=== PATIENT | male | born 1975 | race Caucasian/White ===

== ENCOUNTER 2017-07-08 12:22 | Emergency (ER) | payer BC, OTHER ==
[~2017-07-08] VITALS: Ht 182.9 cm; Wt 106.6 kg
[~2017-07-08 12:22] MED LIST: DIAZEPAM5 MG PO; HYDROCODONE-IB1 EAC1 PO; PHENTERMINE H37.5 M1 PO; SAPHRIS10 MG PO
[2017-07-08] MEDS ORDERED: SODIUM CHLORIDE 0.9% 1000ML 1,000 ML IV ONE (12:45)
[2017-07-08] MEDS ORDERED: ASPIRIN 81 MG CHEW TAB PO ONE (12:45)
--- NOTE | 2017-07-08 13:47 | Diagnostic Imaging Report ---
PROCEDURE: Frontal and lateral views of the chest. COMPARISON: 09/24/07 INDICATIONS: CHEST PAIN FINDINGS: Lines/tubes: None. Lungs: The lungs are well inflated and clear. There is no evidence of pneumonia or pulmonary edema. Pleura: There is no pleural effusion or pneumothorax. Heart and mediastinum: The heart and the mediastinum are normal. Bones: No acute bony abnormality. IMPRESSION: 1. No acute cardiopulmonary disease. Dictated by: Andrea Allen M.D. on 07/08/2017 at 13:57 Electronically approved by: Andrea Allen M.D. on 07/08/2017 at 13:57
[2017-07-08 13:53] LABS: BASOPHILS # (AUTO) 0.1 (0.0-0.1); BASOPHILS % 0.7 % (0.0-1.0); EOSINOPHILS # (AUTO) 0.2 (0.0-0.4); EOSINOPHILS % 1.6 % (0.0-6.0); HEMATOCRIT 47.9 % (38.2-49.6); HEMOGLOBIN 16.1 g/dL (14.0-18.0); LYMPHOCYTES # (AUTO) 3.3 (1.0-3.2); LYMPHOCYTES % 27.6 % (18.0-39.1); MEAN CORPUSCULAR HEMOGLOBIN 28.7 pg (28-32); MEAN CORPUSCULAR HGB CONC 33.6 g/dL (31-35); MEAN CORPUSCULAR VOLUME 85.4 fL (81-99); NEUTROPHILS # (AUTO) 7.3 (2.1-6.9); NEUTROPHILS % 61.8 % (38.7-80.0); PLATELET COUNT 310 x10e3/uL (140-360); RED BLOOD COUNT 5.61 x10e6/uL (4.3-5.7); RED CELL DISTRIBUTION WIDTH 13.6 % (11.7-14.4)
[2017-07-08] MEDS ORDERED: KETOROLAC TROMETHAMINE 30 MG/ML VIAL IV STA (13:54)
[2017-07-08 14:03] LABS: INR 0.8; PROTHROMBIN TIME 11.5 seconds (11.9-14.5)
[2017-07-08 14:13] LABS: ALANINE AMINOTRANSFERASE 21 IU/L (0-55); ALBUMIN 4.1 g/dL (3.5-5.0); ALBUMIN/GLOBULIN RATIO 1.1 (0.8-2.0); ALKALINE PHOSPHATASE 95 IU/L (40-150); ANION GAP 18.6 mmol/L (8-16); BLOOD UREA NITROGEN 12 mg/dL (7-26); BUN/CREATININE RATIO 12 (6-25); CALCIUM 9.2 mg/dL (8.4-10.2); CARBON DIOXIDE 21 mmol/L (22-29); CHLORIDE 106 mmol/L (98-107); CREATINE KINASE 71 IU/L (30-200); CREATININE, SERUM 0.97 mg/dL (0.72-1.25); EST GLOMERULAR FILTRATION RATE > 60 ML/MIN (60-); GLUCOSE 99 mg/dL (74-118); POTASSIUM 4.6 mmol/L (3.5-5.1); SODIUM 141 mmol/L (136-145)
== END 2017-07-08 18:40 | disposition home or self-care (01) ==
LOC: ER 12:22
DX: R07.89 Other chest pain (principal); F31.9 Bipolar disorder, unspecified
CPT/HCPCS: 36415; 71046; 80053; 82550; 82553; 84484; 85025; 85379; 85610; 93005; 99284; J1885; J7030

== ENCOUNTER 2019-01-11 06:13 | Emergency (ER) | payer BC ==
[~2019-01-11] VITALS: Ht 182.9 cm; Wt 106.6 kg
--- OUTSIDE RECORDS SUMMARY | 2019-01-11 06:16 | XMS REPORT ---
Author Author [facility] Address Unknown Phone Unavailable Care Team Providers Care Application Penetration Tester Name Role Phone Jasmyne MONZON Unavailable Unavailable Problems This patient has no known problems. Allergies, Adverse Reactions, Alerts This patient has no known allergies or adverse reactions. Medications This patient has no known medications. Results Test Description Test Time Test Comments Text Results Atomic Results Result Comments CHEST 2 VIEWS [place] [address] Patient Name: JANE BROTHERS MR #: [id number] : 1975 Age/Sex: 42/M Req #: [id number] Adm Physician: Ordered by: FABY MALDONADO HEAD OF MOBILE Report #: [id number] Location: ER Room/Bed: Procedure: [id number] DX/CHEST 2 VIEWS Exam Date: 07/08/17 Exam Time: 1320 REPORT STATUS: Signed PROCEDURE: Frontal and lateral views of the chest. COMPARISON: 09/24/07 INDICATIONS: CHEST PAIN FINDINGS: Lines/tubes: None. Lungs: The lungs are well inflated and clear. There is no evidence of pneumonia or pulmonary edema. Pleura: There is no pleural effusion or pneumothorax. Heart and mediastinum: The heart and the mediastinum are normal. Bones: No acute bony abnormality. IMPRESSION: 1. No acute cardiopulmonary disease. Dictated by: Andrea Pat M.D. on 07/08/2017 at 13:57 Electronically approved by: Andrea Pat M.D. on 07/08/2017 at 13:57 Dictated By: ANDREA PAT MD [id number] Transcribed By: JUANITO on 07/08/17 1357 COPY TO: FABY MALDONADO NP
[2019-01-11 06:44] LABS: BASOPHILS # (AUTO) 0.1 (0.0-0.1); BASOPHILS % 0.5 % (0.0-1.0); EOSINOPHILS # (AUTO) 0.3 (0.0-0.4); EOSINOPHILS % 2.2 % (0.0-6.0); HEMATOCRIT 49.2 % (38.2-49.6); HEMOGLOBIN 16.6 g/dL (14.0-18.0); LYMPHOCYTES # (AUTO) 3.8 (1.0-3.2); LYMPHOCYTES % 33.2 % (18.0-39.1); MEAN CORPUSCULAR HEMOGLOBIN 28.6 pg (28-32); MEAN CORPUSCULAR HGB CONC 33.7 g/dL (31-35); MEAN CORPUSCULAR VOLUME 84.8 fL (81-99); MONOCYTES % 8.7 % (4.4-11.3); NEUTROPHILS # (AUTO) 6.3 (2.1-6.9); NEUTROPHILS % 54.9 % (38.7-80.0); PLATELET COUNT 307 x10e3/uL (140-360); RED CELL DISTRIBUTION WIDTH 13.9 % (11.7-14.4)
[2019-01-11 06:49] LABS: INR 0.9; PROTHROMBIN TIME 12.6 seconds (11.9-14.5)
[2019-01-11 06:50] LABS: PARTIAL THROMBOPLASTIN TIME 26.1 seconds (23.8-35.5)
[2019-01-11 06:55] LABS: BILIRUBIN,URINE NEGATIVE (NEGATIVE); CLARITY,URINE CLEAR (CLEAR); COLOR,URINE YELLOW (YELLOW); KETONES,URINE NEGATIVE (NEGATIVE); LEUKOCYTE ESTERASE ,URINE NEGATIVE (NEGATIVE); NITRITE,URINE NEGATIVE (NEGATIVE); PROTEIN,URINE DIPSTICK NEGATIVE (NEGATIVE); URINE UROBILINOGEN 0.2 mg/dL (0.2 - 1)
[2019-01-11 06:59] LABS: ALANINE AMINOTRANSFERASE 25 IU/L (0-55); ALBUMIN/GLOBULIN RATIO 1.4 (0.8-2.0); ALKALINE PHOSPHATASE 90 IU/L (40-150); ANION GAP 13.8 mmol/L (8-16); BLOOD UREA NITROGEN 9 mg/dL (7-26); BUN/CREATININE RATIO 10 (6-25); CALCIUM 9.9 mg/dL (8.4-10.2); CARBON DIOXIDE 27 mmol/L (22-29); CHLORIDE 98 mmol/L (98-107); CREATINE KINASE 110 IU/L (30-200); CREATININE, SERUM 0.88 mg/dL (0.72-1.25); EST GLOMERULAR FILTRATION RATE > 60 ML/MIN (60-); GLUCOSE 115 mg/dL (74-118); POTASSIUM 3.8 mmol/L (3.5-5.1); SODIUM 135 mmol/L (136-145)
[2019-01-11 07:12] LABS: BACTERIA,URINE FEW /HPF; EPITHELIAL CELLS,URINE FEW /LPF
[2019-01-11] MEDS ORDERED: SODIUM CHLORIDE 0.9% 50ML 50 ML ONE (08:28)
[2019-01-11] MEDS ORDERED: IOPAMIDOL 370 MG/ML 200 ML INFUS..BTL INJ ONE (08:28)
--- NOTE | 2019-01-11 09:10 | Diagnostic Imaging Report ---
EXAM: CT Abdomen and Pelvis WITH intravenous contrast INDICATION: Abdominal pain, vomiting COMPARISON: None. TECHNIQUE: Abdomen and pelvis were scanned utilizing a multidetector helical scanner from the lung base to the pubic symphysis after administration of IV contrast. Coronal and sagittal reformations were obtained. Routine protocol was performed. Scan was performed when during portal venous phase. IV CONTRAST: 100mL of Isovue 370 ORAL CONTRAST: Water COMPLICATIONS: None RADIATION DOSE: Total DLP: 745.7 mGy*cm Dose modulation, iterative reconstruction, and/or weight based adjustment of the mA/kV was utilized to reduce the radiation dose to as low as reasonably achievable. FINDINGS: LOWER THORAX: Normal. HEPATOBILIARY: Mild hepatic steatosis. No focal liver lesion. Normal gallbladder. SPLEEN: No splenomegaly. PANCREAS: No focal masses or ductal dilatation. ADRENALS: No adrenal nodules. KIDNEYS/URETERS: No hydronephrosis, stones, or solid mass lesions. PELVIC ORGANS/BLADDER: Unremarkable. PERITONEUM / RETROPERITONEUM: No free air or fluid. LYMPH NODES: No lymphadenopathy. VESSELS: Scattered atherosclerotic calcifications of the nonaneurysmal abdominal aorta and major branches. GI TRACT: No distention or wall thickening. BONES AND SOFT TISSUES: Status post open reduction internal fixation of left proximal femur. No acute osseous injury. No suspicious lytic or blastic lesions. Degenerative changes of the visualized spine. IMPRESSION: No acute findings in the abdomen or pelvis. Mild hepatic steatosis. Signed by: Shagufta Green MD on 01/11/2019 9:06 AM
--- NOTE | 2019-01-11 09:11 | Diagnostic Imaging Report ---
EXAMINATION: CHEST SINGLE (PORTABLE) INDICATION: Chest pain COMPARISON: None FINDINGS: LINES/TUBES:EKG leads overlie the chest. LUNGS:The lungs are well-inflated. No focal consolidation or pulmonary edema. PLEURA:No pleural effusion or pneumothorax. MEDIASTINUM:The cardiomediastinal silhouette appears normal in size and shape. BONES/SOFT TISSUES:No acute osseous injury. ABDOMEN:No free air under the diaphragm. IMPRESSION: No focal pneumonia or pulmonary edema. Signed by: Shagufta Green MD on 01/11/2019 9:08 AM
[2019-01-11] MEDS ORDERED: PEPCID20 MG PO (09:41)
[2019-01-11 09:48] VITALS: BP 141/69
== END 2019-01-11 09:56 | disposition home or self-care (01) ==
LOC: ER 06:13
DX: R10.13 Epigastric pain (principal); R07.89 Other chest pain; R11.2 Nausea with vomiting, unspecified; K92.0 Hematemesis
CPT/HCPCS: 36415; 71045; 74177; 80053; 81001; 82550; 82553; 83880; 84484; 85025; 85610; 85730; 93005; 99284; Q9967

== ENCOUNTER → 2019-01-14 | Outpatient (CLI) | payer BC ==
[~2019-01-14] MED LIST changes: +ABILIFY5 MG PO; +ADDERALL 20 MG20 MG PO; +NORCO 7.5-3251 EACH PO; +PEPCID20 MG PO; +TRILEPTAL300 MG PO
--- NOTE | 2019-01-14 16:35 | Diagnostic Imaging Report ---
Hepatobiliary Scan with Gallbladder Ejection Fraction Clinical information: RUQ abdominal pain Technique: Following intravenous administration of 7 millicuries of Tc-99m mebrofenin, dynamic images of the abdomen in the anterior projection were obtained through 30 minutes. Sincalide (CCK analog) 2.2 micrograms was administered intravenously over 30 minutes with additional imaging for determination of gallbladder ejection fraction. Discussion: Perfusion of the liver is normal. Extraction of tracer by the liver parenchyma is normal. Tracer appears promptly within the biliary tract. The gallbladder begins to fill at 6 minutes post injection of tracer and fills adequately. Tracer is seen in the small bowel during the sincalide infusion. There is no contractile response by the gallbladder to the pharmacologic dose of sincalide. No emptying of the gallbladder occurs during the 30 minute infusion. Impression: 1. Filling of the gallbladder excludes acute cystic duct obstruction/acute cholecystitis. 2. The gallbladder ejection fraction is undefined as there is no emptying of the gallbladder during the infusion of sincalide. This absence of a contractile response to sincalide supports the clinical diagnosis of chronic cholecystitis/gallbladder dyskinesia. Signed by: Dr. Meredith Perry M.D. on 01/14/2019 4:31 PM
== END ==
LOC: NM 13:37
PROVIDERS: ATTEND Internal Medicine Gastroenterology
DX: R10.11 Right upper quadrant pain (principal)
CPT/HCPCS: 78227; A9537

== ENCOUNTER 2019-01-19 15:16 | Observation (INO) | payer BC ==
[~2019-01-19] VITALS: Ht 182.9 cm; Wt 106.6 kg
[~2019-01-19 15:16] MED LIST changes: -ABILIFY5 MG PO; -ADDERALL 20 MG20 MG PO; -NORCO 7.5-3251 EACH PO; -TRILEPTAL300 MG PO
[2019-01-19 16:36] LABS: BILIRUBIN,URINE NEGATIVE (NEGATIVE); CLARITY,URINE SL CLOUDY (CLEAR); COLOR,URINE YELLOW (YELLOW); KETONES,URINE NEGATIVE (NEGATIVE); LEUKOCYTE ESTERASE ,URINE NEGATIVE (NEGATIVE); NITRITE,URINE NEGATIVE (NEGATIVE); PROTEIN,URINE DIPSTICK NEGATIVE (NEGATIVE); URINE UROBILINOGEN 0.2 mg/dL (0.2 - 1)
[2019-01-19 16:58] LABS: EPITHELIAL CELLS,URINE RARE /LPF
[2019-01-19 17:30] LABS: BASOPHILS # (AUTO) 0.1 (0.0-0.1); BASOPHILS % 0.5 % (0.0-1.0); EOSINOPHILS # (AUTO) 0.3 (0.0-0.4); EOSINOPHILS % 2.4 % (0.0-6.0); HEMATOCRIT 47.6 % (38.2-49.6); HEMOGLOBIN 16.3 g/dL (14.0-18.0); LYMPHOCYTES # (AUTO) 4.7 (1.0-3.2); LYMPHOCYTES % 33.1 % (18.0-39.1); MEAN CORPUSCULAR HEMOGLOBIN 28.7 pg (28-32); MEAN CORPUSCULAR HGB CONC 34.2 g/dL (31-35); MONOCYTES # (AUTO) 1.6 (0.2-0.8); MONOCYTES % 11.1 % (4.4-11.3); NEUTROPHILS # (AUTO) 7.5 (2.1-6.9); NEUTROPHILS % 52.3 % (38.7-80.0); PLATELET COUNT 291 x10e3/uL (140-360); RED BLOOD COUNT 5.67 x10e6/uL (4.3-5.7); RED CELL DISTRIBUTION WIDTH 13.9 % (11.7-14.4)
--- NOTE | 2019-01-19 17:33 | NUR ---
PATIENT TO ROOM 7 AT THIS TIME
[2019-01-19 17:51] LABS: ALANINE AMINOTRANSFERASE 34 IU/L (0-55); ALBUMIN/GLOBULIN RATIO 1.4 (0.8-2.0); ALKALINE PHOSPHATASE 92 IU/L (40-150); ANION GAP 13.1 mmol/L (8-16); BLOOD UREA NITROGEN 11 mg/dL (7-26); BUN/CREATININE RATIO 13 (6-25); CALCIUM 9.7 mg/dL (8.4-10.2); CARBON DIOXIDE 24 mmol/L (22-29); CHLORIDE 101 mmol/L (98-107); CREATININE, SERUM 0.82 mg/dL (0.72-1.25); EST GLOMERULAR FILTRATION RATE > 60 ML/MIN (60-); GLUCOSE 94 mg/dL (74-118); POTASSIUM 4.1 mmol/L (3.5-5.1); SODIUM 134 mmol/L (136-145)
[2019-01-19] MEDS ORDERED: ONDANSETRON HCL INJ 2MG/ML 2ML 2 MG/ML VIAL IV PRN (18:00)
[2019-01-19] MEDS ORDERED: ADDERALL 20 MG20 MG PO (18:12)
[2019-01-19] MEDS ORDERED: DIAZEPAM5 MG PO (18:13)
[2019-01-19] MEDS ORDERED: ABILIFY5 MG PO (18:14)
[2019-01-19] MEDS ORDERED: TRILEPTAL300 MG PO (18:14)
--- NOTE | 2019-01-19 18:35 | NUR ---
RECD PT FROM ER VIA W/C AAOX3,PAIN LEVEL 7 TO ABD,IV INFUSING TO RT FA 18 G.
[2019-01-19 18:44] VITALS: BP 166/99
[2019-01-19] MEDS: HYDROMORPHONE 1MG/1ML INJ IV PRN (18:58)
[2019-01-19] MEDS: SODIUM CHLORIDE 0.9% 1000ML 1,000 ML IV SCH (18:58)
[2019-01-19] MEDS: CEFTRIAXONE SOD 1 GM/NS 50 ML 50 ML IV SCH (18:58)
--- NOTE | 2019-01-19 19:00 | NUR ---
Completed BS rounds with morning nurse. Pt alert and orient to name. Lying in bed HOB 45 degrees. c/o mild RUQ abd, previously medicated. Call hutson within reach. Bed low and locked. Will continue to monitor.
[2019-01-19 20:00] VITALS: BP 142/88
--- NOTE | 2019-01-19 20:30 | NUR ---
Completed service order expediter. Pt alert to name, place, time, and diagnosis: cholecystitis. c/o sharp, constant moderate RUQ abd that radiates to back and right shoulder. Pain relieved with medication, position change, and distraction. Skin warm and intact. Lungs CTA. cap refill <3 secs. 4+ pedal pulses. Last BM 01/16, BS active x4. Denies dysuria. Ambulation steady. Call hutson within reach. Will continue to monitor.
[2019-01-19 20:31] VITALS: BP 142/88
[2019-01-19 20:35] LABS: ANISOCYTOSIS SLIGHT; EOSINOPHILS % (MANUAL) 3 % (0-7); LYMPHOCYTES % (MANUAL) 39 % (19-48); MONOCYTES % (MANUAL) 8 % (3.4-9.0); NEUTROPHILS % (MANUAL) 48 % (40-74); PLATELET ESTIMATE ADEQUATE; PLATELET MORPHOLOGY COMMENT NORMAL; RBC MORPHOLOGY COMMENT NORMAL
[2019-01-19 21:15] VITALS: BP 142/88
[2019-01-19] MEDS: MORPHINE SULFATE INJ 4 MG/ML INJ 1ML IV PRN (21:22)
[2019-01-20] VITALS (8 sets, daily range): BP systolic 109–153; BP diastolic 70–90
[2019-01-20] MEDS: SODIUM CHLORIDE 0.9% 1000ML 1,000 ML IV SCH ×3 (03:00→19:01)
[2019-01-20] MEDS: HYDROMORPHONE 1MG/1ML INJ IV PRN ×4 (03:50→23:15)
[2019-01-20 05:49] LABS: BASOPHILS # (AUTO) 0.1 (0.0-0.1); BASOPHILS % 0.6 % (0.0-1.0); EOSINOPHILS # (AUTO) 0.3 (0.0-0.4); EOSINOPHILS % 2.8 % (0.0-6.0); HEMATOCRIT 45.5 % (38.2-49.6); HEMOGLOBIN 15.2 g/dL (14.0-18.0); LYMPHOCYTES # (AUTO) 3.4 (1.0-3.2); LYMPHOCYTES % 35.1 % (18.0-39.1); MEAN CORPUSCULAR HEMOGLOBIN 28.1 pg (28-32); MEAN CORPUSCULAR HGB CONC 33.4 g/dL (31-35); MEAN CORPUSCULAR VOLUME 84.3 fL (81-99); MONOCYTES % 10.2 % (4.4-11.3); NEUTROPHILS # (AUTO) 4.9 (2.1-6.9); NEUTROPHILS % 50.7 % (38.7-80.0); PLATELET COUNT 264 x10e3/uL (140-360)
[2019-01-20 06:18] LABS: ANION GAP 10.1 mmol/L (8-16); BLOOD UREA NITROGEN 9 mg/dL (7-26); BUN/CREATININE RATIO 12 (6-25); CALCIUM 9.2 mg/dL (8.4-10.2); CARBON DIOXIDE 25 mmol/L (22-29); CHLORIDE 103 mmol/L (98-107); CREATININE, SERUM 0.75 mg/dL (0.72-1.25); EST GLOMERULAR FILTRATION RATE > 60 ML/MIN (60-); GLUCOSE 90 mg/dL (74-118); POTASSIUM 4.1 mmol/L (3.5-5.1); SODIUM 134 mmol/L (136-145)
--- NOTE | 2019-01-20 07:30 | NUR ---
recd pt in bed sleeping,no s/s discomfort,
--- NOTE | 2019-01-20 09:30 | NUR ---
SPOKE WITH DR JACINTO RE CONSULT
[2019-01-20] MEDS ORDERED: BUPIVACAINE 0.25%/EPI 30ML SDV INJ ONE (12:16)
--- NOTE | 2019-01-20 12:23 | NUR ---
pt transported to or via stretcher
--- NOTE | 2019-01-20 13:21 | NUR ---
PT NOT IN ROOM TO COMPLETE DPA AT THIS TIME
[2019-01-20] MEDS ORDERED: FENTANYL CITRATE/PF 100MCG/2 ML INJ ONE ×2 (14:27→19:36)
--- NOTE | 2019-01-20 14:35 | Operative Report ---
DATE OF PROCEDURE: 01/20/2019 SURGEON: Harshad Murrieta MD PREOPERATIVE DIAGNOSIS: Biliary dyskinesia. POSTOPERATIVE DIAGNOSIS: Biliary dyskinesia. OPERATION PERFORMED: Laparoscopic cholecystectomy. ANESTHESIA: General. COMPLICATIONS: None. ESTIMATED BLOOD LOSS: Minimal. DESCRIPTION OF PROCEDURE: With the patient lying in bed in the supine position under good general endotracheal anesthesia, the abdomen was prepped with Betadine solution and draped in the usual manner. A Veress needle was introduced into the umbilicus and pneumoperitoneum was established without any difficulty. An 11 mm trocar was placed into the umbilicus and a 10 mm video laparoscope was placed into the intraabdominal cavity. Under direct vision, three 5 mm trocars were placed in the right subcostal region. Video laparoscopy at this point revealed no abnormalities at the intraabdominal cavity except for the gallbladder that had some adhesions at the neck and was tensely distended. The adhesions to the gallbladder were then slowly and carefully taken down, the peritoneum overlying the neck of the gallbladder was then opened and the cystic duct was identified. The cystic duct was followed to its junction with the common duct. The cystic duct was then circumferentially dissected away from the common duct doubly clipped and divided. The cystic artery had an anterior and a posterior branch and both of these were individually clipped and divided. The gallbladder was then slowly and carefully taken off the liver bed using the cautery scissors and perfect hemostasis was ascertained. The gallbladder was then grasped through the umbilical port and removed without any difficulty. Video laparoscopy was then again carried out, the liver bed was found to be perfectly dry. All of the excess fluid was aspirated. The pneumoperitoneum was evacuated and all the trocars were removed under direct vision. The midline fascia at the umbilicus was then closed with a [id number]-[id number] of 0 Vicryl. All layers were infiltrated on the way out with solution of 0.25% Marcaine. Subcutaneous tissue was approximated with 3-0 Vicryl and the skin was closed with subcuticular 5-0 Vicryl. Benzoin, Steri-Strips, and Band-Aids were applied. The sponge, lap, and needle counts were correct. The patient tolerated the procedure well and returned to the recovery room in stable condition. MD ANDREINA Isbell/KEIRA /[id number]
[2019-01-20] MEDS ORDERED: HYDROMORPHONE 2MG/ML 2 MG/ML ML ONE (14:49)
[2019-01-20] MEDS ORDERED: ONDANSETRON HCL INJ 2MG/ML 2ML 2 MG/ML VIAL ONE ×2 (14:50→19:13)
--- NOTE | 2019-01-20 15:45 | NUR ---
PT RETURNED TO ROOM VIA BED PAIN LEVEL 4 TO ABD ,BANDAIDS X4,NO BLEEDING NOTED.IV INFUSING TO RTFA
--- NOTE | 2019-01-20 17:41 | NUR ---
PT UP AMBULATING IN ROOM ,PAIN LEVEL 4 ,MEDICATED.
[2019-01-20] MEDS: CEFTRIAXONE SOD 1 GM/NS 50 ML 50 ML IV SCH (18:15)
--- NOTE | 2019-01-20 18:55 | NUR ---
Received nursing report from morning nurse. Pt alert and orient to name. Lying in bed HOB 30 degrees. c/o mild RLQ abd pain, previously medicated. Call hutson within reach. Bed low and locked. Will continue to monitor.
[2019-01-20] MEDS ORDERED: DEXAMETHASONE SOD PHOS INJ 4 MG/ML VIAL ONE (19:13)
[2019-01-20] MEDS ORDERED: GLYCOPYRROLATE INJ 1MG/ 5 ML SYR ONE (19:13)
[2019-01-20] MEDS ORDERED: LIDOCAINE HCL 2% JELLY 5 ML TUBE ONE (19:13)
[2019-01-20] MEDS ORDERED: PROPOFOL IV EMULSION 10 MG/ML 20 ML VIAL ONE (19:13)
[2019-01-20] MEDS ORDERED: LIDOCAINE HCL 2% LOCAL INJ 5 ML SDV VIAL INJ ONE (19:13)
[2019-01-20] MEDS ORDERED: ROCURONIUM BROMIDE 10 MG/ML 5ML VIAL ONE (19:13)
[2019-01-20] MEDS ORDERED: SEVOFLURANE INHAL SOLN 250 ML PEN BTL ONE (19:13)
[2019-01-20] MEDS ORDERED: NEOSTIGMINE 5 MG/5ML SYR ONE (19:13)
[2019-01-20] MEDS ORDERED: MIDAZOLAM HCL 2 MG/2 ML VIAL ONE (19:36)
[2019-01-21] VITALS: BP 99/61
[2019-01-21] MEDS: SODIUM CHLORIDE 0.9% 1000ML 1,000 ML IV SCH ×2 (03:00→15:37)
[2019-01-21] MEDS: HYDROMORPHONE 1MG/1ML INJ IV PRN ×2 (03:45→08:09)
[2019-01-21 04:00] VITALS: BP 133/62
--- NOTE | 2019-01-21 07:00 | NUR ---
PATIENT IS ALERT AND IN STABLE CONDITION WITH NO S/S OF RESPIRATORY DISTRESS. PATIENT C/O OF ABD PAIN 12/08. IV FLUIDS INFUSING. CALL LIGHT IS WITHIN REACH, PATIENT INSTRUCTED TO CALL FOR ASSISTANCE NEEDED.
--- NOTE | 2019-01-21 07:01 | NUR ---
THREE- TROCHAR SITED NOTED TO ABD. BAND-AID APPLIED; NO DRAINAGE NOTED.
--- NOTE | 2019-01-21 07:15 | NUR ---
Completed BS rounds with morning nurse. Pt alert and orient. Sitting in bed HOB 60 degrees. No acute distress noted.
[2019-01-21 07:33] VITALS: BP 133/77
[2019-01-21 09:08] VITALS: BP 133/77
[2019-01-21] MEDS ORDERED: HYDROCODONE/APAP 7.5MG-325MG 1 EA TAB PO ONE (09:45)
[2019-01-21] MEDS ORDERED: DOCUSATE SODIUM 100 MG CAP PO PRN (09:45)
[2019-01-21 11:22] VITALS: BP 135/75
[2019-01-21] MEDS: MORPHINE SULFATE INJ 4 MG/ML INJ 1ML IV PRN (15:19)
[2019-01-21 16:19] VITALS: BP 150/88
[2019-01-21] MEDS ORDERED: NORCO 7.5-3251 EACH PO (17:58)
--- NOTE | 2019-01-21 18:11 | NUR ---
PATIENT DISCHARGE HOME- PATIENT OFF THE UNIT AT 1807 PER AMBULATION WITH PCT TO THE FRONT LOBBY. PATIENT IN STABLE CONDITION WITH NO S/S OF RESPIRATORY DISTRESS. NO PAIN VOICED. 3- TROCHAR SITES NOTED. IV REMOVED WITH TIP INTACT. DISCHARGE TEACHING, INSTRUCTIONS AND MEDICATION GIVEN TO THE PATIENT. ALL PERSONAL ITEMS TAKEN WITH THE PATIENT.
== END 2019-01-21 18:07 | disposition home or self-care (01) ==
LOC: ER 15:16 → ERHOLD 17:50 → MED/SURG3 18:31
DX: K81.1 Chronic cholecystitis (principal); K82.8 Other specified diseases of gallbladder; K21.9 Gastro-esophageal reflux disease without esophagitis; N28.89 Other specified disorders of kidney and ureter; F98.8 Other specified behavioral and emotional disorders with onset usually occurring in childhood and adolescence; F31.9 Bipolar disorder, unspecified; F41.9 Anxiety disorder, unspecified; R12 Heartburn; F17.210 Nicotine dependence, cigarettes, uncomplicated
CPT/HCPCS: 36415 ×2; 47562; 80048; 80053; 81001; 85025 ×2; 88304; 93005; 96360; 96361 ×2; 99284; C1766; G0378 ×3; J0696 ×2; J1100; J1170 ×4; J2001 ×2; J2250; J2270 ×2; J2405; J2704; J3010; J3490; J7030 ×3

== ENCOUNTER 2021-01-21 12:49 | Emergency (ER) | payer BC ==
[~2021-01-21] VITALS: Ht 182.9 cm; Wt 106.6 kg
[~2021-01-21 12:49] MED LIST changes: +ABILIFY5 MG PO; +ADDERALL 20 MG20 MG PO; +NORCO 7.5-3251 EACH PO; +TRILEPTAL300 MG PO
[2021-01-21] MEDS ORDERED: CYCLOBENZAPRINE HCL 10 MG TAB PO ONE (13:30)
[2021-01-21] MEDS ORDERED: HYDROCODONE/APAP 10MG-325MG TAB PO ONE (13:30)
== END 2021-01-21 14:38 | disposition home or self-care (01) ==
LOC: ER 13:05
DX: M16.12 Unilateral primary osteoarthritis, left hip (principal); F41.9 Anxiety disorder, unspecified; F31.9 Bipolar disorder, unspecified
CPT/HCPCS: 99283

== ENCOUNTER → 2021-01-29 | Day surgery (SDC) | payer BC, OTHER ==
[~2021-01-29] MED LIST changes: +BUPIVACAINE 0.25% 30ML SDV ONE; +IOPAMIDOL 300MG/ML 50ML INFUS..BTL IV ONE; +TRIAMCINOLONE ACET 40 MG/ML VIAL ONE
[2021-01-29 07:55] VITALS: BP 139/91
== END | disposition home or self-care (01) ==
LOC: OR 05:27
PROVIDERS: ATTEND Specialist
DX: M16.12 Unilateral primary osteoarthritis, left hip (principal); G89.29 Other chronic pain; F98.8 Other specified behavioral and emotional disorders with onset usually occurring in childhood and adolescence; F32.9 Major depressive disorder, single episode, unspecified; Z01.810 Encounter for preprocedural cardiovascular examination; Z01.812 Encounter for preprocedural laboratory examination; Z20.822 Contact with and (suspected) exposure to COVID-19; Z68.31 Body mass index [BMI] 31.0-31.9, adult; Z96.652 Presence of left artificial knee joint; Z87.81 Personal history of (healed) traumatic fracture
CPT/HCPCS: 20610; 77002; 93005; J3301; Q9967; U0002; 77003

== ENCOUNTER 2021-05-06 06:23 | Observation (INO) | payer BC, OTHER ==
[2021-05-02 15:16] LABS: BASOPHILS # (AUTO) 0.1 (0.0-0.1); BASOPHILS % 0.5 % (0.0-1.0); EOSINOPHILS # (AUTO) 0.5 (0.0-0.4); EOSINOPHILS % 3.1 % (0.0-6.0); HEMATOCRIT 47.8 % (38.2-49.6); HEMOGLOBIN 15.6 g/dL (14.0-18.0); LYMPHOCYTES # (AUTO) 5.4 (1.0-3.2); LYMPHOCYTES % 33.5 % (18.0-39.1); MEAN CORPUSCULAR HEMOGLOBIN 28.3 pg (28-32); MEAN CORPUSCULAR HGB CONC 32.6 g/dL (31-35); MEAN CORPUSCULAR VOLUME 86.6 fL (81-99); MONOCYTES # (AUTO) 1.3 (0.2-0.8); NEUTROPHILS # (AUTO) 8.7 (2.1-6.9); NEUTROPHILS % 54.3 % (38.7-80.0); PLATELET COUNT 351 x10e3/uL (140-360); RED BLOOD COUNT 5.52 x10e6/uL (4.3-5.7); RED CELL DISTRIBUTION WIDTH 13.4 % (11.7-14.4)
[~2021-05-06] VITALS: Ht 185.4 cm; Wt 111.6 kg
[~2021-05-06 06:23] MED LIST changes: -BUPIVACAINE 0.25% 30ML SDV ONE; +CELECOXIB 200 MG CAP ONE; +DEXAMETHASONE SOD PHOS 10 MG/1 ML VIAL ONE; +GABAPENTIN 300 MG CAP ONE; -IOPAMIDOL 300MG/ML 50ML INFUS..BTL IV ONE; +LITHOBID300 MG PO; -TRIAMCINOLONE ACET 40 MG/ML VIAL ONE; +TYLENOL 3
[2021-05-06] MEDS ORDERED: MIDAZOLAM HCL 2 MG/2 ML VIAL ONE (06:38)
[2021-05-06] MEDS ORDERED: FENTANYL CITRATE/PF 100MCG/2 ML INJ ONE ×2 (06:38→07:34)
[2021-05-06] MEDS ORDERED: TRANEXAMIC ACID 1,000 MG/10 ML ML ONE (06:55)
[2021-05-06] MEDS ORDERED: SODIUM CHLORIDE 0.9% 500ML 500 ML ONE (06:55)
[2021-05-06] MEDS ORDERED: Vancomycin IV 1,000 MG ONE (06:55)
[2021-05-06] MEDS ORDERED: ROPIVACAINE 246.25 MG, EPINEPHRINE HCL 1:1000 1ML 0.5 MG, CLONIDINE HCL 0.08 MG, KETORO... INJ ONE ×5 (08:00)
[2021-05-06] MEDS ORDERED: PROPOFOL IV EMULSION 10 MG/ML 20 ML VIAL ONE ×3 (08:44→16:44)
[2021-05-06] MEDS ORDERED: DOCUSATE SODIUM 100 MG CAP PO PRN (09:45)
[2021-05-06] MEDS ORDERED: ACETAMINOPHEN 650 MG SUPP PR PRN (09:45)
[2021-05-06] MEDS ORDERED: DIPHENHYDRAMINE HCL INJ 50 MG/ML VIAL IV PRN (09:45)
[2021-05-06] MEDS ORDERED: HYDROCODONE/APAP 5MG-325MG TAB PO PRN (09:45)
[2021-05-06] MEDS ORDERED: ZOLPIDEM TARTRATE 5 MG TAB PO PRN (09:45)
[2021-05-06] MEDS ORDERED: ONDANSETRON HCL INJ 2MG/ML 2ML 2 MG/ML VIAL IV PRN (09:45)
[2021-05-06 11:20] VITALS: BP 105/83
[2021-05-06] MEDS: SODIUM CHLORIDE 0.9% 1000ML 1,000 ML IV SCH ×2 (11:30→21:30)
[2021-05-06] MEDS ORDERED: DIAZEPAM 5 MG TAB PO PRN (14:00)
[2021-05-06] MEDS: Cefazolin 1 GM in SODIUM CHLORIDE 0.9% 50ML 50 ML IV SCH ×2 (14:25→22:39)
[2021-05-06 15:35] VITALS: BP 97/70
[2021-05-06] MEDS: CELECOXIB 200 MG CAP PO SCH (16:06)
[2021-05-06] MEDS: ASPIRIN 325 MG TAB PO SCH (16:06)
[2021-05-06] MEDS: HYDROCODONE/APAP 7.5MG-325MG 1 EA TAB PO PRN ×2 (16:20→20:53)
[2021-05-06] MEDS ORDERED: LIDOCAINE HCL 2% LOCAL INJ 5 ML SDV VIAL INJ ONE (16:44)
[2021-05-06] MEDS ORDERED: ROCURONIUM BROMIDE 10 MG/ML 5ML VIAL IV ONE (16:44)
[2021-05-06] MEDS ORDERED: SEVOFLURANE INHAL SOLN 250 ML PEN BTL ONE (16:44)
[2021-05-06] MEDS ORDERED: ONDANSETRON HCL INJ 2MG/ML 2ML 2 MG/ML VIAL ONE (16:44)
[2021-05-06] MEDS ORDERED: POVIDONE IODINE 0.05% 0.05 % ML PO ONE (16:44)
[2021-05-06] MEDS ORDERED: DEXAMETHASONE SOD PHOS INJ 4 MG/ML SDV ONE (16:44)
[2021-05-06] MEDS ORDERED: BUPIVACAINE HCL 0.5% INJ 30 ML VIAL INJ ONE (16:45)
[2021-05-06] MEDS: KETOROLAC TROMETHAMINE 30 MG/ML VIAL IV PRN (18:29)
[2021-05-06 20:00] VITALS: BP 107/63
[2021-05-06] MEDS ORDERED: LITHIUM CARBONATE ER 300 MG TAB PO SCH (21:00)
[2021-05-06] MEDS ORDERED: ARIPIPRAZOLE 5 MG TABLET PO SCH (21:00)
[2021-05-07] VITALS: BP 124/73
[2021-05-07] MEDS: KETOROLAC TROMETHAMINE 30 MG/ML VIAL IV PRN ×2 (00:36→07:30)
[2021-05-07] MEDS: HYDROCODONE/APAP 7.5MG-325MG 1 EA TAB PO PRN ×2 (03:31→08:10)
[2021-05-07 04:00] VITALS: BP 96/59
[2021-05-07 05:02] LABS: BASOPHILS % 0.2 % (0.0-1.0); EOSINOPHILS % 0.1 % (0.0-6.0); HEMATOCRIT 36.9 % (38.2-49.6); HEMOGLOBIN 12.1 g/dL (14.0-18.0); LYMPHOCYTES # (AUTO) 2.7 (1.0-3.2); LYMPHOCYTES % 10.3 % (18.0-39.1); MEAN CORPUSCULAR HEMOGLOBIN 28.1 pg (28-32); MEAN CORPUSCULAR HGB CONC 32.8 g/dL (31-35); MEAN CORPUSCULAR VOLUME 85.8 fL (81-99); MONOCYTES # (AUTO) 2.6 (0.2-0.8); NEUTROPHILS # (AUTO) 20.7 (2.1-6.9); NEUTROPHILS % 78.7 % (38.7-80.0); PLATELET COUNT 302 x10e3/uL (140-360); RED CELL DISTRIBUTION WIDTH 13.2 % (11.7-14.4)
[2021-05-07] MEDS: Cefazolin 1 GM in SODIUM CHLORIDE 0.9% 50ML 50 ML IV SCH (05:22)
[2021-05-07 05:43] LABS: ALBUMIN 3.4 g/dL (3.5-5.0); ALBUMIN/GLOBULIN RATIO 1.5 (0.8-2.0); ANION GAP 12.5 mmol/L (8-16); CALCIUM 9.1 mg/dL (8.4-10.2); CREATININE, SERUM 0.87 mg/dL (0.72-1.25); POTASSIUM 4.5 mmol/L (3.5-5.1)
[2021-05-07] MEDS: SODIUM CHLORIDE 0.9% 1000ML 1,000 ML IV SCH (07:21)
[2021-05-07 08:00] VITALS: BP 120/78
[2021-05-07 08:02] VITALS: BP 120/78
[2021-05-07] MEDS: CELECOXIB 200 MG CAP PO SCH (08:15)
[2021-05-07] MEDS: ASPIRIN 325 MG TAB PO SCH (08:15)
[2021-05-07] MEDS ORDERED: LITHIUM CARBONATE ER 300 MG TAB PO SCH (09:00)
[2021-05-07] MEDS ORDERED: ARIPIPRAZOLE 5 MG TABLET PO SCH (09:00)
[2021-05-07] MEDS ORDERED: ACETAMINOPHEN 1000 MG/100 ML IV PRN (09:45)
[2021-05-07 10:51] LABS: LYMPHOCYTES % (MANUAL) 7 % (19-48); MONOCYTES % (MANUAL) 6 % (3.4-9.0); NEUTROPHILS % (MANUAL) 86 % (40-74); PLATELET ESTIMATE ADEQUATE; PLATELET MORPHOLOGY COMMENT NORMAL; RBC MORPHOLOGY COMMENT NORMAL
== END 2021-05-07 10:53 | disposition home or self-care (01) ==
LOC: OR 06:23 → PACU V 09:32 → MED/SURG 10:45
PROVIDERS: ADMIT Specialist; ATTEND Specialist
DX: M16.52 Unilateral post-traumatic osteoarthritis, left hip (principal); S72.142S Displaced intertrochanteric fracture of left femur, sequela; F41.9 Anxiety disorder, unspecified; F31.9 Bipolar disorder, unspecified; I10 Essential (primary) hypertension; Z01.810 Encounter for preprocedural cardiovascular examination; Z01.812 Encounter for preprocedural laboratory examination; Z01.818 Encounter for other preprocedural examination; Z20.822 Contact with and (suspected) exposure to COVID-19
CPT/HCPCS: 27132; 36415 ×2; 71046; 72170; 80053; 80178; 85025 ×2; 93005; 94799 ×2; 97110; 97116 ×2; 97161; 97530 ×2; C1713 ×2; C1776 ×2; G0378 ×2; J0171; J0690 ×2; J1100 ×2; J1885 ×2; J2001; J2250; J2405; J2704; J2795; J3010; J3370; J7040; U0002